=== PATIENT | male | born 1980 | race Caucasian/White ===

== ENCOUNTER 2021-04-23 14:30 | Outpatient (CLI) | payer OTHER, SELFPAY ==
--- NOTE | ~2021-04-23 | XR_ITS ---
XR elbow LT 2V DATE: 04/23/2021 14:44 INDICATION: New onset of finger numbness. History of fracture of left elbow. TECHNIQUE: AP and lateral views COMPARISON: None FINDINGS: There is some prominent chronic amorphous calcification along the anterior aspect of the el bow joint. There is spurring of the coronoid process of the proximal ulna. No fracture or dislocation, joint effusion, periosteal reaction or bone destruction is evident. IMPRESSION: Prominent anterior soft tissue calcification Reviewed, dictated and finalized at location B. [facility]AGE PATHOLOGIST
== END 2021-04-23 14:31 | disposition home or self-care (01) ==
LOC: ANHIMG 14:34
PROVIDERS: PCP Emergency Medicine; Visit Provider Emergency Medicine
DX: M77.8 Other enthesopathies, not elsewhere classified (principal)
CPT/HCPCS: 73070

== ENCOUNTER 2021-10-16 11:06 | Outpatient (CLI) | payer OTHER, SELFPAY ==
[2021-10-16 11:33] LABS: Basophils Absolute Auto 0.1 K/mm3 (0.0-0.1); Basophils Percent Auto 0.7 % (0.2-1.2); Eosinophils Absolute Auto 0.2 K/mm3 (0-0.3); Eosinophils Percent Auto 1.7 % (0-4.4); Hematocrit 44.3 % (42.0-52.0); Hemoglobin 14.7 g/dL (14.0-18.0); Immature Granulocyte Absolute 0.06 K/mm3 (0.00-0.031); Immature Granulocyte Percent A 0.4 % (0-0.5); Lymphocytes Absolute Auto 3.04 K/mm3 (0.9-3.2); Lymphocytes Percent Auto 22.5 % (18.3-44.2); Mean Corpuscular HGB Conc 33.2 g/dl (32-36); Mean Corpuscular Hemoglobin 29.6 pg (26-34); Mean Corpuscular Volume 89.1 fl (80-100); Mean Platelet Volume 9.3 fl (7.4-10.4); Monocytes Absolute Auto 0.8 K/mm3 (0.1-0.6); Monocytes Percent Auto 6.2 % (2.6-8.5); Neutrophils Absolute Auto 9.3 K/mm3 (1.3-6.7); Neutrophils Percent Auto 68.5 % (45.5-73.1); Platelet Count Result 305 k/mm3 (150-375); Red Blood Count 4.97 M/mm3 (4.6-6.20); Red Cell Distribution Width 13.2 % (11.5-14.5); White Blood Count 13.5 K/mm3 (4.5-10.0)
[2021-10-16 11:46] LABS: Alanine Aminotransferase 33 U/L (6-50); Albumin Level 4.7 g/dL (3.5-5.1); Alkaline Phosphatase 85 U/L (38-126); Anion Gap 8 mmol/L (8-16); Aspartate Amino Transferase 35 U/L (17-59); Bilirubin,Total 0.5 mg/dL (0.2-1.3); Blood Urea Nitrogen 11 mg/dL (9-20); Calcium 9.3 mg/dL (8.4-10.2); Carbon Dioxide 28 mmol/L (22-30); Chloride 100 mmol/L (98-107); Cholesterol 149 mg/dL (0-200); Estimated Glomerular Filt Rate > 60; Glucose 107 mg/dL (65-110); HDL Direct 44 mg/dL; Potassium 4.1 mmol/L (3.4-5.0); Sodium 136 mmol/L (137-145); Triglycerides 113 mg/dL (<150)
[2021-10-16 11:57] LABS: LDL Cholesterol Direct 66 mg/dL
[2021-10-16 12:18] LABS: Thyroid Stimulating Hormone 0.526 uIU/mL (0.465-4.680)
[2021-10-20 13:47] LABS: Vitamin D 1,25 (OH)2 Total 54 pg/mL (18-72); Vitamin D2 1,25 (OH)2 <8 pg/mL; Vitamin D3 1,25 (OH)2 54 pg/mL
== END 2021-10-16 11:07 | disposition home or self-care (01) ==
LOC: ANHLAB 11:08
PROVIDERS: PCP Emergency Medicine; Visit Provider Emergency Medicine
DX: Z13.6 Encounter for screening for cardiovascular disorders (principal)
CPT/HCPCS: 36415; 80053; 80061; 82652; 84443; 85025

== ENCOUNTER 2021-10-28 13:23 | Outpatient (CLI) | payer OTHER, SELFPAY ==
--- NOTE | ~2021-10-28 | MR_ITS ---
EXAMINATION: MR elbow LT wo con DATE: 10/28/2021 14:36 INDICATION: Evaluate left elbow pain TECHNIQUE: Magnetic resonance imaging (MRI) of the left elbow was performed without intravenous contr ast. Sequences included coronal, axial, and sagittal PD-weighted FS FSE and coronal, axial, and sagit jose PD-weighted FSE. COMPARISON: None FINDINGS: Osseous/other: Normal alignment. Normal marrow signal with no marrow edema, fracture, osteochondral lesion or abnor mal marrow replacing process. There is a poorly demarcated lesion within the distal brachialis muscle belly with multilobulated regions of increased PD signal and intervening thin linear region of low s ignal intensity which likely correspond to the curvilinear calcifications seen at this location on th e prior radiographs. The lesion measures approximately 3.6 x 2.4 x 1.0 cm. There is some increased sa turating intramuscular fat interspersed with the muscle fibers extending approximately 1.5 cm proxima lly from the not saturating PD hyperintense lesion. Tendons: Triceps, biceps brachii and brachialis tendons are normal. Common flexor tendon wad is normal. The c ommon extensor tendon wad is normal. Ligaments: The medial and lateral collateral ligament complexes are normal. Cubital tunnel: Cubital tunnel is unremarkable with normal signal and caliber of the ulnar nerve. Fluid: Physiologic amount of fluid the elbow joint. IMPRESSION: 1. Indeterminate lesion within the distal brachialis muscle belly which includes both macroscopic fat interspersed with muscle fibers surrounding a 3.6 x 2.4 x 1.0 cm nonfat saturating PD hyperintense l esion with lobular margins and with internal curvilinear calcifications as seen on prior radiographs. Assessment is somewhat limited in the absence of T1 and T2-weighted imaging and the absence of postc ontrast imaging. Differential would include a hemangioma or other vascular malformation, neoplasm eit her benign or malignant (including lipoma or liposarcoma) or sequela of old trauma. Would recommend o rthopedic oncology consultation. Reviewed, dictated and finalized at location A. IMPRESSION: 1. Indeterminate lesion within the distal brachialis muscle belly which include s both macroscopic fat interspersed with muscle fibers surrounding a 3.6 x 2.4 x 1.0 cm nonfat saturating PD hyperintense lesion with lobular margins and with internal curvilinear calcifications as seen on prior radiographs. Assessment i s somewhat limited in the absence of T1 and T2-weighted imaging and the absence of postcontrast imaging. Differential would include a hemangioma or other vasc ular malformation, neoplasm either benign or malignant (including lipoma or lip osarcoma) or sequela of old trauma. Would recommend orthopedic oncology consult ation.
== END 2021-10-28 13:24 | disposition home or self-care (01) ==
PROVIDERS: PCP Emergency Medicine; Visit Provider Orthopaedic Surgery
DX: M25.522 Pain in left elbow (principal); R93.7 Abnormal findings on diagnostic imaging of other parts of musculoskeletal system
CPT/HCPCS: 73221

== ENCOUNTER 2022-05-12 16:29 | Outpatient (CLI) | payer OTHER, SELFPAY ==
[2022-05-12 16:50] LABS: Hematocrit 46.8 % (42.0-52.0); Hemoglobin 16.1 g/dL (14.0-18.0); Mean Corpuscular HGB Conc 34.4 g/dl (32-36); Mean Corpuscular Hemoglobin 29.9 pg (26-34); Mean Corpuscular Volume 86.8 fl (80-100); Mean Platelet Volume 9.2 fl (7.4-10.4); Platelet Count Result 331 k/mm3 (150-375); Red Blood Count 5.39 M/mm3 (4.6-6.20); Red Cell Distribution Width 13.3 % (11.5-14.5); White Blood Count 12.8 K/mm3 (4.5-10.0)
[2022-05-12 17:03] LABS: Alanine Aminotransferase 44 U/L (6-50); Albumin Level 4.7 g/dL (3.5-5.1); Alkaline Phosphatase 73 U/L (38-126); Anion Gap 6 mmol/L (8-16); Aspartate Amino Transferase 37 U/L (17-59); Bilirubin,Total 0.5 mg/dL (0.2-1.3); Blood Urea Nitrogen 11 mg/dL (9-20); Calcium 8.8 mg/dL (8.4-10.2); Carbon Dioxide 29 mmol/L (22-30); Chloride 102 mmol/L (98-107); Estimated Glomerular Filt Rate > 60; Glucose 114 mg/dL (65-110); Potassium 3.6 mmol/L (3.4-5.0); Sodium 137 mmol/L (137-145)
== END 2022-05-12 16:30 | disposition home or self-care (01) ==
LOC: ANHLAB 16:30
PROVIDERS: PCP Emergency Medicine; Visit Provider Emergency Medicine
DX: D64.9 Anemia, unspecified (principal); E78.5 Hyperlipidemia, unspecified
CPT/HCPCS: 36415; 80053; 85027

== ENCOUNTER 2022-06-24 00:46 | Day surgery (SDC) | payer OTHER, SELFPAY ==
[2022-06-16 10:14] VITALS: BMI 23.8
[2022-06-24 08:39] VITALS: BP 107/78; PULSE 82; RESP 18; TEMP 36.3; O2SAT 100
[2022-06-24] MEDS: LACTATED RINGERS 1,000 ML 150 ML IV CONT (08:45)
--- NOTE | 2022-06-24 08:58 | WPDANESEPPF ---
Anes - Initial Pre Proc Eval Procedure: Operation Date: 06/24/22 10:30 Proposed Procedures p Colonoscopy - Triston Lawson MD Date/Time: 06/24/22 08:58 Surgeon: Triston Lawson MD Pre Op Diagnosis: abnormal weightloss,hemorrhage of anus/rectum Patient Data Age: 41 Gender: M Height: 1.83 m Weight: 79 kg Last Vital Signs Temp 97.3 F L 06/24/22 08:39 Pulse 82 06/24/22 08:39 Resp 18 06/24/22 08:39 BP 107/78 06/24/22 08:39 Pulse Ox 100 06/24/22 08:39 O2 Del Method Room Air 06/24/22 08:39 Allergies Allergy/AdvReac Type Severity Reaction Status Date / Time No Known Allergies Allergy Verified 06/24/22 08:37 Home Medications Medication Instructions Recorded Confirmed Type multivitamin 1 tablet PO DAILY 12/24/20 06/24/22 History escitalopram oxalate 10 mg tablet 10 mg PO DAILY PRN other 06/16/22 06/24/22 History Patient hx anesthesia problems: none Family hx anesthesia problems: none Results Review: All pre-operative results and documents have been reviewed as part of the pre-operative evaluation. [facility] Past Medical History Medical History (Updated 05/19/22 @ 15:34 by PAM Alvarez) Claustrophobia Fatigue Unintentional weight loss Wears glasses Surgical History Surgical History History of neck surgery (~2002) History of surgery on upper extremity (~11/2021) removal of benign lesion Family History Family History Father , 42 Lymphoma Social History Social History Social History: Patient drinks 2 sodas daily. Smoking packs per day: 1 Smoking cigarettes per day: 20.0 Years smoked: 13 Smoking pack-years: 13.00 Smoking status: Current every day smoker Tobacco type: cigarettes Alcohol intake: current Drinks per week: 6 Substance use: current Substance use type: marijuana Last use: Daily Living arrangements: alone Occupation/Education: occupation Additional occupation/education comments: [employer] [[email or web address] Gender identity (if verbalized by the patient): Male Spiritual care concerns: No Anes - Eval Final PreProcedure Day of Procedure 06/24/22 08:58 Patient weight: normal Heart: regular rate and rhythm Lungs: clear to auscultation Airway: Mallampati scale class II Neurological: alert and oriented Last oral intake: >/= 8 hours ASA classification: II Emergent: no Anesthetic plan: proceed Anesthesia type and monitoring: general GIVS and standard monitoring Results Review: All pre-operative results and documents have been reviewed as part of the pre-operative evaluation. Informed Consent: The patient's anesthetic plan and its attendant risks and benefits were discussed with the patient/family/POA. Questions were solicited and answers provided to the satisfaction of the patient/family/POA.
--- NOTE | 2022-06-24 09:19 | PM.HPGS ---
History of Present Illness History of Present Illness Consent: Risks, benefits, and alternatives have been discussed and questions answered. Patient agrees to proceed with procedure. Chief complaint: abnormal weightloss,hemorrhage of anus/rectum Narrative: Ha Corley is a 41 year old male with intermittent rectal bleeding, had colonoscopy over 10 years ago Review of Systems Constitutional: Constitutional: Denies headache(s) and Denies weakness Eyes: Eyes: Denies blurry vision ENT: Reports Normal hearing present, Denies headache(s) and Denies neck pain Cardiovascular: Cardiovascular: Denies chest pain and Denies dyspnea Respiratory: Respiratory: Denies dyspnea Gastrointestinal: Gastrointestinal: Reports no additional gastrointestinal complaints Genitourinary: Genitourinary: Denies dysuria Musculoskeletal: Musculoskeletal: Denies neck pain Integumentary/Breasts: Skin/Breast: Denies dry skin Neurologic: Reports Normal hearing present, Denies headache(s) and Denies weakness Psychiatric: Psychiatric: Denies anxiety Endocrine: Endocrine: Denies change in body appearance Hematologic/Lymphatic: Hematologic/Lymphatic: Denies easy bleeding Allergic/Immunologic: Allergic/Immunologic: Denies urticaria PMFSH Past Medical History Medical History (Updated 05/19/22 @ 15:34 by MAUREEN AlvarezN-C) Claustrophobia Fatigue Unintentional weight loss Wears glasses Surgical History Surgical History History of neck surgery (~2002) History of surgery on upper extremity (~11/2021) removal of benign lesion Family History Family History Father , 42 Lymphoma Social History Social History Social History: Patient drinks 2 sodas daily. Smoking packs per day: 1 Smoking cigarettes per day: 20.0 Years smoked: 13 Smoking pack-years: 13.00 Smoking status: Current every day smoker Tobacco type: cigarettes Alcohol intake: current Drinks per week: 6 Substance use: current Substance use type: marijuana Last use: Daily Living arrangements: alone Occupation/Education: occupation Additional occupation/education comments: [employer] Gender identity (if verbalized by the patient): Male Spiritual care concerns: No Meds Home Medications and Allergies Home Medications Medication Instructions Recorded Confirmed Type multivitamin 1 tablet PO DAILY 12/24/20 06/24/22 History escitalopram oxalate 10 mg tablet 10 mg PO DAILY PRN other 06/16/22 06/24/22 History Allergies Allergy/AdvReac Type Severity Reaction Status Date / Time No Known Allergies Allergy Verified 06/24/22 08:37 Vital Signs Vital Signs - 24 hr 06/24/22 08:39 Temperature 97.3 F L Pulse Rate 82 Respiratory Rate 18 Blood Pressure 107/78 Pulse Oximetry 100 Oxygen Delivery Room Air Exam Const: General: comfortable and no acute distress HENMT: Face/Nose/Sinus: Normal nares present Eyes: General: appearance normal, both eyes and all related structures Neck: Neck: no JVD Resp: Auscultation: clear to auscultation bilaterally Cardio: Rate: regular rate Rhythm: regular rhythm GI: Inspection: non-distended GI Palp: Yes Soft to palpation Skin: General skin exam: normal color Neuro: General: gait normal Speech: normal speech Extrem: General: normal to inspection Psych: Mental Status: mental status grossly normal Assessment and Plan Assessment and plan (1) Rectal bleeding: Code(s): K62.5 - Hemorrhage of anus and rectum Status: Acute Assessment and Plan: colonoscopy
[2022-06-24 09:40] VITALS: BP 91/61; PULSE 62; RESP 13; O2SAT 97
--- NOTE | 2022-06-24 09:46 | SUR.OPER ---
Unable to obtain transverse polyps. Dr. Alejandro merchant.
[2022-06-24 09:50] VITALS: BP 111/80; PULSE 72; RESP 17; O2SAT 99
[2022-06-24 10:00] VITALS: BP 113/76; PULSE 72; RESP 17; O2SAT 99
== END 2022-06-24 10:07 | disposition home or self-care (01) ==
PROVIDERS: PCP Emergency Medicine; Visit Provider Internal Medicine Gastroenterology
PROC: 0DJD8ZZ Inspection of Lower Intestinal Tract, Via Natural or Artificial Opening Endoscopic (ICD-10-PCS; CPT 45378; principal; 2022-06-24 10:30)
DX: K92.1 Melena (principal); D12.5 Benign neoplasm of sigmoid colon; K57.30 Diverticulosis of large intestine without perforation or abscess without bleeding; K64.8 Other hemorrhoids; F17.210 Nicotine dependence, cigarettes, uncomplicated; F12.90 Cannabis use, unspecified, uncomplicated
CPT/HCPCS: 45385; 88305; J2704; J7120

== ENCOUNTER 2023-11-19 11:21 | Emergency (ER) | payer OTHER, SELFPAY ==
[2023-11-19 11:31] VITALS: BP 131/95; PULSE 81; RESP 16; TEMP 36.6; O2SAT 98
--- NOTE | 2023-11-19 11:41 | ED.EYEPROB ---
HPI - Eye Problem General Chief complaint: Eye Problems Stated complaint: EYE REDNESS Time Seen by Provider: 11/19/23 11:40 Source: patient Mode of arrival: ambulatory Limitations: no limitations History of Present Illness HPI Narrative: Ha is a 42-year-old male patient presenting to the clinic today with complaints of right eye redness x5 days. He woke up Wednesday with his eye bloodshot. He reports some discomfort to the right lateral eye. No known injury. He states he was lifting something heavy that may have caused it. He denies any drainage or pain behind the eye. No visual changes. Wears glasses. Related Data Home Medications Medication Instructions Recorded Confirmed multivitamin 1 tablet PO DAILY 12/24/20 11/19/23 aripiprazole 5 mg tablet 5 mg PO QHS 11/19/23 11/19/23 hydroxyzine pamoate 25 mg capsule 25 mg PO TID 11/19/23 11/19/23 Allergies Allergy/AdvReac Type Severity Reaction Status Date / Time No Known Allergies Allergy Verified 11/19/23 11:33 Review of Systems Review of Systems: Pertinent positives per HPI. Patient denies any fever, chills, rash, headache, visual changes, dizziness, cough, shortness of breath, chest pain, palpitations, nausea, vomiting, diarrhea, constipation, abdominal pain, or any urinary issues. [facility] Past Medical History Medical History Claustrophobia Fatigue Unintentional weight loss Wears glasses Surgical History Surgical History History of neck surgery (~2002) History of surgery on upper extremity (~11/2021) removal of benign lesion Family History Family History Father , 42 Lymphoma Social History Social History Social History: Patient drinks 2 sodas daily. Smoking packs per day: 1 Smoking cigarettes per day: 20.0 Years smoked: 13 Smoking pack-years: 13.00 Smoking status: Current every day smoker Tobacco type: cigarettes Alcohol intake: current Drinks per week: 6 Substance use: current Substance use type: marijuana Last use: Daily Living arrangements: alone Occupation/Education: occupation Additional occupation/education comments: [employer] Gender identity (if verbalized by the patient): Male Spiritual care concerns: No Comments At the time of my signature, I reviewed and agree with the nursing past medical, surgical, social, and family history. There is no relevant family history pertinent to the patient complaint. Exam Narrative: General: Well-developed, well nourished, in no apparent distress Head: Normocephalic, atraumatic Eyes: Pupils equally round and reactive to light bilaterally, EOM intact, left sclera and conjunctive clear, right conjunctivia clear with subconjunctival hemorrhage at 11oclock and 6 oclock of the globe, bruising noted to the right lateral eye, upper eye lid, and lower eye lid with mild swelling. Ears: TMs intact and clear, ear canals clear, no drainage, grossly hearing normal. Nose: Nares patent, no discharge, no inflammation, no sinus tenderness. Mouth: Oral pharynx without lesions or masses, good dentition, MMM. Neck: Supple, trachea midline, no enlargement of anterior or posterior cervical nodes, no thyroid masses or goiter palpable. Cardio: Regular rate and rhythm, s1 and s2 normal, no murmur appreciated. Resp: Clear to auscultation bilaterally, no rhonchi, rales, wheezing or rubs Course Course Emergency Course: Portions of this record may have been created with voice recognition software. Level of Care: Express Care Visit Vital Signs Vital signs: Vital Signs Temperature 36.6 C 11/19/23 11:31 Pulse Rate 81 11/19/23 11:31 Respiratory Rate 16 11/19/23 11:31 Blood Pressure 131/95 H 11/19/23 11:3
[2023-11-19] MEDS: DACRIOSE EYE IRRIGATION 118 ML BOTTLE RIGHT EYE (11:53)
[2023-11-19] MEDS: TETRACAINE HCL 0.5% OPHTH SOLN 4 ML BTL RIGHT EYE (11:54)
[2023-11-19] MEDS: FLUORESCEIN SOD 1 MG/STRIP RIGHT EYE (11:54)
== END 2023-11-19 12:20 | disposition home or self-care (01) ==
PROVIDERS: Emergency Provider Nurse Practitioner Family; PCP Emergency Medicine
DX: S00.12XA Contusion of left eyelid and periocular area, initial encounter (principal); S00.11XA Contusion of right eyelid and periocular area, initial encounter; H11.31 Conjunctival hemorrhage, right eye; X58.XXXA Exposure to other specified factors, initial encounter; F17.210 Nicotine dependence, cigarettes, uncomplicated; F12.90 Cannabis use, unspecified, uncomplicated
CPT/HCPCS: 99213; A9270; G0463